=== PATIENT | male | born 1990 | race Caucasian/White ===

== ENCOUNTER 2018-01-28 08:44 | Emergency (ER) | payer MEDICAID ==
[~2018-01-28] VITALS: Ht 170.2 cm; Wt 81.6 kg
[2018-01-28 08:46] VITALS: BP_SYST 147
[2018-01-28 09:12] VITALS: BP_SYST 147
== END 2018-01-28 09:09 ==
LOC: SED 08:44
DX: Z02.89 Encounter for other administrative examinations (principal); R03.0 Elevated blood-pressure reading, without diagnosis of hypertension
CPT/HCPCS: 99283

== ENCOUNTER 2019-02-27 23:59 | Emergency (ER) | payer MEDICAID ==
[~2019-02-27] VITALS: Ht 170.2 cm; Wt 81.6 kg
[2019-02-28] VITALS: BP_SYST 133
--- NOTE | 2019-02-28 | NUR ---
Patient to ER bed hallway 1 for evaluation. Side rails up.
--- NOTE | 2019-02-28 00:26 | NUR ---
Pt came to the ED by officers for medical clearance. Reports he was injured in june while playing basketball. Denies n/v/d or fever. Denies pain. No other complaints/injuries noted. Will. cont. to monitor.
--- NOTE | 2019-02-28 00:30 | NUR ---
ER at bedside examining patient.
--- NOTE | 2019-02-28 01:02 | NUR ---
Patient given written and verbal discharge instructions and verbalizes understanding. ER MD Dr. Baca discussed with patient the results and treatment provided. Patient in stable condition. ID arm band removed. Patient educated on pain management and to follow up with PMD. Pain Scale 0/10. Opportunity for questions provided and answered. Medication side effect fact sheet provided.
[2019-02-28 01:24] VITALS: BP_SYST 133
== END 2019-02-28 01:24 ==
LOC: SED 23:59
DX: Z02.89 Encounter for other administrative examinations (principal); Z87.81 Personal history of (healed) traumatic fracture
CPT/HCPCS: 99283